=== PATIENT | female | born 1995 | race Caucasian/White ===

== ENCOUNTER 2017-06-13 18:38 | Emergency (ER) | payer OTHER ==
[~2017-06-13] VITALS: Ht 157.5 cm; Wt 43.6 kg
[2017-06-13 18:45] VITALS: BP 113/77
== END 2017-06-13 19:36 | disposition home or self-care (01) ==
LOC: ED 19:30
DX: J02.8 Acute pharyngitis due to other specified organisms (principal)
CPT/HCPCS: 71020; 99284

== ENCOUNTER 2018-02-11 19:23 | Emergency (ER) | payer OTHER ==
[~2018-02-11] VITALS: Ht 154.9 cm; Wt 44.0 kg
[2018-02-11] MEDS ORDERED: L.E.T SOLUTION TP ONE (19:27)
[2018-02-11 21:03] LABS: BASOPHILS # (AUTO) 0.02 x10^3/uL (0-0.1); BASOPHILS % (AUTO) 1 % (0-1); EOSINOPHILS # (AUTO) 0.01 x10^3/uL (0-0.4); EOSINOPHILS % (AUTO) 0 % (1-7); LYMPHOCYTES # (AUTO) 1.48 x10^3/uL (1-3.4); LYMPHOCYTES % (AUTO) 29 % (22-44); MD NO; MEAN CORPUSCULAR HEMOGLOBIN 31.4 pg (27.0-34.8); MEAN CORPUSCULAR HGB CONC 34.2 g/dL (32.4-35.8); MEAN PLATELET VOLUME 9.1 fL (7.4-10.4); MONOCYTES # (AUTO) 0.27 x10^3/uL (0.2-0.8); MONOCYTES % (AUTO) 5 % (2-9); NEUTROPHILS # (AUTO) 3.33 x10^3/uL (1.8-6.8); NEUTROPHILS % (AUTO) 65 % (42-75); PLATELET COUNT 195 x10^3/uL (130-400); RED BLOOD COUNT 4.44 x10^6/uL (3.82-5.3); RED CELL DISTRIBUTION WIDTH 12.6 % (9.6-15.2)
[2018-02-11 21:15] LABS: ALBUMIN 4.4 g/dL (3.4-5.0); ANION GAP 6 mmol/L (5-15); CALCIUM 9.4 mg/dL (8.5-10.1); CHLORIDE 109 mmol/L (98-107); CREATININE 0.76 mg/dL (0.55-1.02)
[2018-02-11 21:19] LABS: TROPONIN I < 0.015 ng/mL (0.000-0.045)
[2018-02-11 21:50] VITALS: BP 118/79
== END 2018-02-11 21:52 | disposition home or self-care (01) ==
LOC: ED 21:46
DX: R07.89 Other chest pain (principal); Z88.1 Allergy status to other antibiotic agents
CPT/HCPCS: 36415; 71046; 80048; 82040; 84484; 84703; 85025; 85379; 93005; 99285

== ENCOUNTER 2020-04-09 01:31 | Emergency (ER) | payer BC, OTHER ==
[~2020-04-09] VITALS: Ht 157.5 cm; Wt 47.7 kg
--- NOTE | 2020-04-09 02:04 | NUR ---
24 YEAR OLD FEMALE TO ED FOR CHEST PAIN X 2 DAYS W ASSOCIATED SOB. THESE SYMPTOMS HAVE BEEN HAPPENING ON AND OFF X 2 YEARS. SHE IS TAKING ORAL CONTROL PILLS.
[2020-04-09 02:32] LABS: BASOPHILS % (AUTO) 1 % (0-1); EOSINOPHILS % (AUTO) 1 % (1-7); LYMPHOCYTES % (AUTO) 22 % (22-44); MD NO; MEAN CORPUSCULAR HEMOGLOBIN 30.1 pg (27.0-34.8); MEAN PLATELET VOLUME 8.8 fL (7.4-10.4); MONOCYTES % (AUTO) 7 % (2-9); NEUTROPHILS % (AUTO) 70 % (42-75); PLATELET COUNT 204 x10^3/uL (130-400); RED BLOOD COUNT 4.19 x10^6/uL (3.82-5.3); RED CELL DISTRIBUTION WIDTH 12.5 % (9.6-15.2)
[2020-04-09 02:43] LABS: ALANINE AMINOTRANSFERASE 28 U/L (12-78); ANION GAP 8 mmol/L (5-15); CALCIUM 8.7 mg/dL (8.5-10.1); CHLORIDE 108 mmol/L (98-107); CREATININE 0.75 mg/dL (0.55-1.02)
[2020-04-09 02:47] LABS: ALKALINE PHOSPHATASE 64 U/L (45-117); BILIRUBIN,TOTAL 0.5 mg/dL (0.2-1.0); TOTAL PROTEIN 7.8 g/dL (6.4-8.2); TROPONIN I < 0.015 ng/mL (0.000-0.045)
[2020-04-09 03:24] VITALS: BP 112/61
== END 2020-04-09 03:26 ==
LOC: ED 03:20
DX: R07.89 Other chest pain (principal); R00.2 Palpitations
CPT/HCPCS: 36415; 71046; 80053; 84484; 85025; 85379; 93005; 99285

== ENCOUNTER → 2020-05-31 | Outpatient (CLI) | payer OTHER | END | disposition home or self-care (01) | LOC: RAD 13:56 | PROVIDERS: ATTEND Physician Assistant Medical | DX: M25.561 Pain in right knee (principal) ==